=== PATIENT | female | born 1940 | race Hispanic/Latino ===

== ENCOUNTER 2021-06-14 14:51 | Emergency (ER) | payer OTHER ==
[~2021-06-14] VITALS: Ht 157.5 cm; Wt 72.6 kg
[2021-06-14] MEDS ORDERED: IBUPROFEN200 MG PO (16:11)
[2021-06-14] MEDS ORDERED: ACETAMINOPHEN500 MG PO (16:11)
== END 2021-06-14 17:32 | disposition home or self-care (01) ==
LOC: FSED 15:04 → EDBD 15:04 → FSED 17:32
DX: M25.552 Pain in left hip (principal); M16.12 Unilateral primary osteoarthritis, left hip; I69.354 Hemiplegia and hemiparesis following cerebral infarction affecting left non-dominant side
CPT/HCPCS: 99283